=== PATIENT | female | born 1980 | race Caucasian/White ===

== ENCOUNTER 2016-12-30 07:57 | Emergency (ER) | payer BC | END 2016-12-30 10:10 | disposition home or self-care (01) | LOC: ER1 07:57 | DX: S90.31XA Contusion of right foot, initial encounter (principal); I10 Essential (primary) hypertension; W20.8XXA Other cause of strike by thrown, projected or falling object, initial encounter; Y92.009 Unspecified place in unspecified non-institutional (private) residence as the place of occurrence of the external cause; Z79.899 Other long term (current) drug therapy | CPT/HCPCS: 29515; 73630; 99283 ==